=== PATIENT | male | born 2000 | race Caucasian/White ===

== ENCOUNTER 2022-04-24 02:21 | Inpatient (IN) | payer OTHER, SELFPAY ==
[2022-04-24] VITALS (24 sets, daily range): BP systolic 85–113; BP diastolic 35–69; PULSE 74–121; RESP 13–18; TEMP 36.7–36.8; O2SAT 95–100; BMI 25.4
--- NOTE | ~2022-04-24 | XR_ITS ---
EXAMINATION: XR chest 1V portable 04/24/2022 03:31 INDICATION: Diabetic ketoacidosis PROCEDURE: AP portable chest COMPARISON: No prior studies for comparison. FINDINGS: The lungs are clear. The cardiomediastinal silhouette is within normal limits. There are no pleural effusions. There is no pneumothorax suspected. IMPRESSION: 1: NO ACUTE CARDIOPULMONARY DISEASE. Reviewed, dictated and finalized at location A. TH INFORMATICS INSTRUCTOR
--- NOTE | ~2022-04-24 | XR_ITS ---
XR chest port-a-cath/central 04/24/2022 08:48 Indication: Central line placement Procedure: AP portable chest Comparison: 04/24/2022 Findings: Heart size upper normal. No focal air space disease, pulmonary edema, pleural effusion or s uspected pneumothorax. Central venous catheter tip in the right atrium. No acute osseous abnormality. Impression: 1: No acute cardiopulmonary disease. Reviewed, dictated and finalized at location A. DATION CONSULTANT Impression: 1: No acute cardiopulmonary disease.
--- NOTE | 2022-04-24 03:07 | ECG_ITS ---
Measurements Intervals [place] Rate: 119 P: 67 FL: 140 QRS: 260 QRSD: 97 T: 56 QT: 311 QTc: 439 Interpretive Statements SINUS TACHYCARDIA POSSIBLE LEFT ATRIAL ENLARGEMENT INCOMPLETE RIGHT BUNDLE BRANCH BLOCK CANNOT RULE OUT SEPTAL INFARCT, AGE INDETERMINATE ABNORMAL ECG COMPARED TO ECG 04/24/2022 03:08:06 NO SIGNIFICANT CHANGES Electronically Signed On 04-24-2022 7:49:46 GEOTHERMAL OPERATIONS MANAGER by Thong Holloway D.O.
[2022-04-24 03:37] LABS: Basophils Percent Auto 0.1 % (0.2-1.2); Hematocrit 40.2 % (42.0-52.0); Hemoglobin 13.8 g/dL (14.0-18.0); Immature Granulocyte Absolute 0.12 K/mm3 (0.00-0.031); Immature Granulocyte Percent A 0.6 % (0-0.5); Lymphocytes Absolute Auto 0.71 K/mm3 (0.9-3.2); Lymphocytes Percent Auto 3.8 % (18.3-44.2); Mean Corpuscular HGB Conc 34.3 g/dl (32-36); Mean Corpuscular Hemoglobin 29.5 pg (26-34); Mean Corpuscular Volume 85.9 fl (80-100); Mean Platelet Volume 12.4 fl (7.4-10.4); Monocytes Absolute Auto 1.3 K/mm3 (0.1-0.6); Neutrophils Absolute Auto 16.7 K/mm3 (1.3-6.7); Neutrophils Percent Auto 88.5 % (45.5-73.1); Platelet Count Result 235 k/mm3 (150-375); Red Blood Count 4.68 M/mm3 (4.6-6.20); Red Cell Distribution Width 11.9 % (11.5-14.5); White Blood Count 18.9 K/mm3 (4.5-10.0)
[2022-04-24] MEDS: ONDANSETRON INJ 4 MG/2 ML VIAL 8 MG IV PUSH (03:45)
[2022-04-24] MEDS: SODIUM CHLORIDE 0.9% IV 3,000 ML 999 ML IV CONT (03:46)
[2022-04-24 03:54] LABS: Alanine Aminotransferase 59 U/L (6-50); Albumin Level 4.1 g/dL (3.5-5.1); Alkaline Phosphatase 77 U/L (38-126); Anion Gap 25 mmol/L (8-16); Aspartate Amino Transferase 32 U/L (17-59); Bilirubin,Total 4.9 mg/dL (0.2-1.3); Blood Urea Nitrogen 24 mg/dL (9-20); Calcium 8.6 mg/dL (8.4-10.2); Carbon Dioxide 9 mmol/L (22-30); Chloride 96 mmol/L (98-107); Estimated CRCL calculation 73 ml/min; Estimated Glomerular Filt Rate > 60; Glucose 562 mg/dL (65-110); Lipase 34 U/L (23-300); Magnesium 1.6 mg/dL (1.6-2.3); Phosphorus 5.4 mg/dL (2.5-4.5); Sodium 130 mmol/L (137-145)
--- NOTE | 2022-04-24 04:10 | ECG_ITS ---
Measurements Intervals [place] Rate: 116 P: 73 [place]: 134 QRS: -36 QRSD: 101 T: 65 QT: 309 QTc: 430 Interpretive Statements SINUS TACHYCARDIA POSSIBLE LEFT ATRIAL ENLARGEMENT INCOMPLETE RIGHT BUNDLE BRANCH BLOCK CANNOT RULE OUT SEPTAL INFARCT, AGE INDETERMINATE ABNORMAL ECG NO PREVIOUS ECG AVAILABLE FOR COMPARISON Electronically Signed On 04-24-2022 7:45:28 ETCHED CIRCUIT PROCESSOR by Thong Holloway D.O.
[2022-04-24 04:39] LABS: Potassium 6.1 mmol/L (3.4-5.0)
[2022-04-24] MEDS: INSULIN HUMAN REGULAR (*BKC) 100 UNITS/ML 7 UNITS IV PUSH (04:48)
[2022-04-24] MEDS: INSULIN HUMAN REGULAR (*BKC) 100 UNITS in SODIUM CHLORIDE 0.9% IV 99 ML 8.4 UNITS IV CONT (04:51)
[2022-04-24 05:03] LABS: Influenza A QL RT-PCR Negative (Negative); Influenza B QL RT-PCR Negative (Negative); RSV RNA, RT-PCR Negative (Negative); SARS-CoV-2 RNA PCR Negative
[2022-04-24 05:16] LABS: Beta-Hydroxybutyrate/Acetoacetate 6.99 mmol/L (0.02-0.27)
[2022-04-24 05:36] LABS: Glucose Point of Care 482 mg/dl (65-105)
[2022-04-24 05:39] LABS: Anion Gap 21 mmol/L (8-16); Blood Urea Nitrogen 26 mg/dL (9-20); Calcium 7.1 mg/dL (8.4-10.2); Carbon Dioxide 8 mmol/L (22-30); Chloride 105 mmol/L (98-107); Estimated CRCL calculation 73 ml/min; Estimated Glomerular Filt Rate > 60; Glucose 474 mg/dL (65-110); Potassium 5.1 mmol/L (3.4-5.0); Sodium 134 mmol/L (137-145)
[2022-04-24 05:48] LABS: Appearance Urine Clear (Clear); Bilirubin Urine Negative (Negative); Blood Urine Negative (Negative); Color Urine Yellow (Yellow); Glucose Urine UA 3+ mg/dL (Negative); Ketones Urine 4+ mg/dL (Negative); Leukocyte Esterase Ur Negative LEU/UL (Negative); Nitrate Urine Negative (Negative); Protein Urine Negative (Negative); Specific Grav Ur 1.015 (1.001-1.035); Urobilinogen Urine 0.2 mg/dL (<2.0)
[2022-04-24 05:51] LABS: Hemoglobin A1C 7.7 % (<5.7)
[2022-04-24 05:52] LABS: Glucose Point of Care 442 mg/dl (65-105)
[2022-04-24 05:52] LABS: Bacteria Urine Trace /hpf; Mucus Urine Rare /lpf; RBC Urine 0-2 /hpf (0-2); Squamous Epithelial Cell Urine Rare /hpf (Few); WBC Urine 0-3 /hpf
[2022-04-24 06:00] LABS: Add Urine Microscopic? YES
[2022-04-24 06:32] LABS: Fractional Inspired Oxygen 21 %; PO2 VBG 73.6 mmHg (35.0-45.0)
[2022-04-24 06:37] LABS: pH VBG 7.228 (7.300-7.400)
[2022-04-24] MEDS: SODIUM CHLORIDE 0.9% IV 1,000 ML 999 ML IV CONT (06:38)
[2022-04-24] MEDS: CALCIUM GLUC 2,000 MG/NS 100ML 2,000 MG/100 ML BAG 100 MG IVPB (06:41)
[2022-04-24 06:44] LABS: Anion Gap 20 mmol/L (8-16); Blood Urea Nitrogen 27 mg/dL (9-20); Calcium 7.3 mg/dL (8.4-10.2); Carbon Dioxide 10 mmol/L (22-30); Chloride 105 mmol/L (98-107); Estimated CRCL calculation 73 ml/min; Estimated Glomerular Filt Rate > 60; Glucose 411 mg/dL (65-110); Potassium 4.2 mmol/L (3.4-5.0); Sodium 135 mmol/L (137-145)
[2022-04-24 06:45] LABS: Lactic Acid Reflex 3.6 mmol/L (0.7-2.0)
[2022-04-24 06:50] LABS: Glucose Point of Care 361 mg/dl (65-105)
[2022-04-24 07:14] LABS: Glucose Point of Care 337 mg/dl (65-105)
--- NOTE | 2022-04-24 07:26 | ED.GENADULT ---
HPI - General Adult General Chief complaint: Recheck/Abnormal Lab/Rx Stated complaint: high blood sugar Time Seen by Provider: 04/24/22 03:07 History of Present Illness HPI narrative: This is a 21-year-old male history of type 1 diabetes presenting to ED with nausea/vomiting and abdominal pain. The patient states he was house-sitting did not have his diabetes kit with him. He is not sure of his pump is actually working. He was not able to check his blood sugar. At 2:00 p.m. on 04/23 patient started experiencing nausea vomiting and total body pain. He checked his blood sugar at time is over 400. He then came to the hospital for evaluation. Patient denies fever, chills, chest pain difficulty breathing, urinary symptoms or diarrhea. Related Data Allergies Allergy/AdvReac Type Severity Reaction Status Date / Time No Known Allergies Allergy Verified 04/24/22 04:26 [facility] Past Medical History Medical History Gilbert syndrome Type I diabetes mellitus Social History Social History Social History: Denies use of alcohol tobacco. Admits marijuana use. Denies illicit drug use. Exam Narrative: APPEARANCE: No apparent distress. patient is lying supine in bed Head: atraumatic. EYES: EOMI, NOSE: Atraumatic NECK: Trachea midline RESPIRATORY: No increased rate of breathing clear to auscultation CARDIOVASCULAR: tachycardic, no peripheral edema ABDOMINAL: Non-distended, nontender no guarding or rebound, glucose detector in place MUSCULOSKELETAl: No obvious deformities NEURO: Alert. Moving 4/4 extremities SKIN:: jaundice PSYCHIATRIC: Normal affect Course Vital Signs Vital signs: Vital Signs Pulse Rate 121 H 04/24/22 02:24 Respiratory Rate 16 04/24/22 02:24 Blood Pressure 105/35 L 04/24/22 02:24 Pulse Oximetry 100 04/24/22 02:24 Oxygen Delivery Room Air 04/24/22 02:24 Pulse Rate 114 H 04/24/22 07:00 Respiratory Rate 16 04/24/22 07:00 Blood Pressure 93/46 L 04/24/22 07:00 Pulse Oximetry 100 04/24/22 07:00 Oxygen Delivery Room Air 04/24/22 02:24 Medical Decision Making MDM Narrative Medical decision making narrative: -Presentation:Is a 21-year-old male presenting ED with chief complaint of nausea vomiting total body pain with elevated blood sugars. -DDX includes but is not limited to: DKA, gastroenteritis, viral syndrome -Co-morbidities complicating care: 1 diabetes, Gilbert syndrome -External Chart Review: none -Hx from independent Sources: father -Discussion of Management/Consultants: - Sweta- Medicine -Independent interpretation of studies: White blood cell count was 18.9. Chest x-ray, urinalysis and skin exam did not reveal any infections. Blood cultures were ordered. Venous blood gas showed a pH is 7.2, CO2 of 22, O2 of 73.6 and a bicarb of 9, this represents a metabolic acidosis with respiratory compensation metabolic panel showed a metabolic acidosis with anion gap of 20. BUN and creatinine are elevated 27 and 1.4. Initial lactic was 3.6, initial hydroxybutyrate 6.99. Patient's bilirubin is elevated 4.9, likely from his Gilbert's syndrome urinalysis was positive for ketones but no evidence of infection. Viral swabs were negative. At this time the patient is in diabetic ketoacidosis. He will be started on a 7.4 units/hour insulin drip, 250 cc/hour normal saline. Patient's was given calcium gluconate for his elevated potassium. His potassium should continue to drop as we correct his acidosis. patient does receive of 4.5 L bolus, and is continued to receive maintenance fluid. His blood pressure has slowly been responding to fluids. Given the patient's elevated white blood cell count tachycardia and soft blood pressures I am going to start him on broad-spectrum antibiotics. -Procedures: None -Interventions: 4.5 L of fluid bolus, 10
[2022-04-24] MEDS: SODIUM CHLORIDE 0.9% IV 1,000 ML 250 ML IV CONT (07:30)
--- NOTE | 2022-04-24 07:37 | ECG_ITS ---
Measurements Intervals [place] Rate: 110 P: 61 [place]: 131 QRS: 9 QRSD: 90 T: 62 QT: 334 QTc: 454 Interpretive Statements SINUS TACHYCARDIA BASELINE ARTIFACT- III ABNORMAL ECG COMPARED TO ECG 04/24/2022 04:10:57 NO SIGNIFICANT CHANGES Electronically Signed On 04-24-2022 15:18:36 TRACER POWDER BLENDER by Thong Holloway D.O.
--- NOTE | 2022-04-24 07:56 | PC.NURSE ---
Per Dr. Leija insulin drip to stay at 7.2 units/hr. VORB.
[2022-04-24 08:22] LABS: Glucose Point of Care 307 mg/dl (65-105)
--- NOTE | 2022-04-24 08:24 | PC.NURSE ---
EDP Zych at bedside for central line insertion.
[2022-04-24] MEDS: NOREPINEPHRINE 8 MG/D5W 250 ML 8 MG/250 ML BAG 9.38 MG IV CONT (08:56)
[2022-04-24 09:18] LABS: Glucose Point of Care 284 mg/dl (65-105)
[2022-04-24] MEDS: HYDROcodone/acetaminophen (*CRX) 5-325 MG TABLET 1 TAB PO (09:20)
[2022-04-24 09:27] LABS: Anion Gap 7 mmol/L (8-16); Blood Urea Nitrogen 26 mg/dL (9-20); Carbon Dioxide 18 mmol/L (22-30); Chloride 107 mmol/L (98-107); Estimated CRCL calculation 78 ml/min; Estimated Glomerular Filt Rate > 60; Glucose 295 mg/dL (65-110); Potassium 3.9 mmol/L (3.4-5.0); Sodium 132 mmol/L (137-145)
[2022-04-24 09:28] LABS: Reflex Lactic Acid Yes or No Add Lactic
[2022-04-24 10:09] LABS: Glucose Point of Care 230 mg/dl (65-105)
[2022-04-24 10:16] LABS: Procalcitonin 33.2 ng/mL
--- NOTE | 2022-04-24 10:16 | WPDCNINT ---
Assessment and Plan Assessment and plan (1) DKA (diabetic ketoacidosis): Code(s): E11.10 - Type 2 diabetes mellitus with ketoacidosis without coma Status: Acute Assessment and Plan: Patient was given IVF bolus and and started infusion Patient has been started Insulin infusion and Q1H glucose monitoring Serial labs are being done Replace electrolytes as needed His anion gap has closed. He states he would like to eat food and denies any symptoms at this time but he still on 5 units of insulin I will start clear liquid diet and advance as tolerated. I will give him Lantus per continue insulin infusion at this time. Once insulin requirement is improved will switch him to with meal and sliding scale insulin (2) Sepsis: Code(s): A41.9 - Sepsis, unspecified organism Status: Acute Assessment and Plan: Patient presented with elevated WBC count and hypotension This could be secondary to DKA, stress, hypovolemia His chest x-ray and UA are unremarkable Patient was started on empiric antibiotics in the ER-continue vanc and cefepime Check procalcitonin level Blood culture have been sent and pending COVID and flu were negative (3) KHAI (acute kidney injury): Code(s): N17.9 - Acute kidney failure, unspecified Status: Acute Assessment and Plan: Likely secondary to hypovolemia and dehydration Creatinine is improving with IV fluids Check CK level Check urine electrolytes (4) Shock: Code(s): R57.9 - Shock, unspecified Status: Acute Assessment and Plan: Patient was hypotensive the ED. he received significant more than 4 L of IV fluid bolus but his blood pressure remained low Central venous catheter was placed and patient has been started on Levophed Hypotension could be hypovolemia dehydration and metabolic derangements Sepsis another possibility and patient is being treated empirically with antibiotics Check procalcitonin level Repeat lactic acid level Continue Levophed titration Continue IV fluid Plan DVT prophylaxis -SCDs Nutrition -NPO. Advance diet as tolerated Code Status - Full Code Total Critical Care Time - 30 minutes Due to a high probability of clinically significant, life threatening deterioration, the patient required my highest level of preparedness to intervene emergently and I personally spent this critical care time directly and personally managing the patient. This critical care time included obtaining a history; examining the patient; pulse oximetry; ordering and review of studies; arranging urgent treatment with development of a management plan; evaluation of patient's response to treatment; frequent reassessment; and discussions with other providers. It was exclusive of separately billable procedures and treating other patients and teaching time. Please see Assessment and Plan section and the rest of the note for further information on patient assessment and treatment Quarter Section Ironer Consult Note Consult date: 04/24/22 Reason for consult: DKA, Hypotension HPI: Dimas Last is a 21 year old male with past medical history of type 1 diabetes presenting to ED last night with nausea/vomiting and abdominal pain.? The patient states he is on insulin pump and is not sure of his pump is actually working.? He did not had his echo check machine with him hence was not able to check his blood sugar.? At 2:00 p.m. on 04/23? patient he started experiencing nausea vomiting and total body pain.? He checked his blood sugar at time is over 400.? He then came to the hospital for evaluation.? In ED patient was found to be in DKA, KHAI and hyperkalemia. He was given IV fluid bolus and started on IV fluid infusion. He was also started on IV insulin. His blood pressure was low despite IV fluid boluses blood pressure remained low. Central venous catheter was placed and patient was started on Levophed infusion. Patient now admitted to ICU for further evaluation management. He is on 5 uni
--- NOTE | 2022-04-24 10:21 | ADMGEN ---
This patient, Dimas Last, was admitted to Intensive Care Unit-2. Patient/family oriented to hospital policies and general routines including ID bracelet, bed and alarms, visiting hours, pain management, procedures, bathroom and other care routines, personal items, smoking policy, room service/diet, and visiting hours. Information on how to activate the Rapid Response Team has been discussed. Patient/Family are encouraged to report perceived risks to care and to ask questions if they do not understand what they are told or what they should do.
--- NOTE | 2022-04-24 11:06 | PM.IMHP ---
H&P: HPI History of Present Illness Date/Time: 04/24/22 11:06 Chief Complaint: Elevated blood sugar Narrative: This is a 21-year-old male history of type 1 diabetes presenting to ED with nausea/vomiting and abdominal pain.? The patient states he was house-sitting did not have his diabetes kit with him.? He is not sure of his pump is actually working.? He was not able to check his blood sugar.? At 2:00 p.m. on 04/23? patient started experiencing nausea vomiting and total body pain.? He checked his blood sugar at time is over 400.? He then came to the hospital for evaluation.? Patient denies fever, chills, chest pain difficulty breathing, urinary symptoms or diarrhea. [facility] Past Medical History Medical History Gilbert syndrome Type I diabetes mellitus Social History Social History Social History: Denies use of alcohol tobacco. Admits marijuana use. Denies illicit drug use. Smoking status: Never smoker Lack of Transportation: No Lack of Food: Never True Current Housing: I Have Housing Concerned About Future Housing: No Difficulty Paying Gas/Electric Bills: No Difficulty Paying for Meds: No Currently Unemployed: No Education: High School Diploma/GED Difficulty w/ Childcare or Family Care: No Spiritual care concerns: No Meds Home Medications and Allergies Home Medications Medication Instructions Recorded Confirmed Type blood sugar diagnostic (Accu-Chek 04/24/22 04/24/22 History Guide test strips) insulin lispro 100 unit/mL See Rx Instructions .Route .COMPLEX 04/24/22 04/24/22 History subcutaneous solution (Humalog U-100 Insulin) Allergies Allergy/AdvReac Type Severity Reaction Status Date / Time No Known Allergies Allergy Verified 04/24/22 04:26 Vital Signs Vital Signs - 24 hr 04/24/22 02:24 04/24/22 06:46 04/24/22 07:00 Pulse Rate 121 H 112 H 114 H Respiratory Rate 16 16 Blood Pressure 105/35 L 85/43 L 93/46 L Pulse Oximetry 100 99 100 Oxygen Delivery Room Air 04/24/22 07:31 04/24/22 07:49 04/24/22 07:57 Pulse Rate 112 H 114 H Respiratory Rate 16 16 18 Blood Pressure 90/48 L 92/46 L Pulse Oximetry 100 100 100 Oxygen Delivery 04/24/22 08:16 04/24/22 08:56 04/24/22 09:16 Pulse Rate 110 H 104 H 102 H Respiratory Rate 18 17 Blood Pressure 88/49 L 102/54 L 108/59 L Pulse Oximetry 98 99 Oxygen Delivery 04/24/22 09:41 04/24/22 10:11 Pulse Rate 102 H Respiratory Rate 18 Blood Pressure 106/61 105/60 Pulse Oximetry 99 Oxygen Delivery Exam Narrative: General: alert and oriented Psych: appropriate mood nad affect Eyes: PERRLA Neck: Trachea midline, no new lesions Skin: no changes Lungs: CTA Cardiac: Normal S1,S2, no MGR ABD: soft, nd, nt, nbs Ext: no new lesions, no cce Vasc: Pulses intact H&P: Results Labs Labs: Short CBC 04/24/22 Range/Units 03:10 WBC 18.9 H (4.5-10.0) K/mm3 Hgb 13.8 L (14.0-18.0) g/dL Hct 40.2 L (42.0-52.0) % Plt Count 235 (150-375) k/mm3 BMP 04/24/22 04/24/22 04/24/22 03:10 04:23 05:21 Sodium 130 L 134 L Potassium 6.0 H* 6.1 H* 5.1 H Chloride 96 L 105 Carbon Dioxide 9 L 8 L BUN 24 H 26 H Creatinine 1.40 H 1.40 H Glucose 562 H* 474 H Calcium 8.6 7.1 L 04/24/22 04/24/22 06:23 09:10 Sodium 135 L 132 L Potassium 4.2 3.9 Chloride 105 107 Carbon Dioxide 10 L 18 L BUN 27 H 26 H Creatinine 1.40 H 1.30 Glucose 411 H 295 H Calcium 7.3 L 8.0 L Liver Function 04/24/22 Range/Units 03:10 Total Bilirubin 4.9 H (0.2-1.3) mg/dL AST 32 (17-59) U/L ALT 59 H (6-50) U/L Alkaline Phosphatase 77 (38-126) U/L Albumin 4.1 (3.5-5.1) g/dL Urine 04/24/22 Range/Units 05:34 Urine Color Yellow (Yellow) Urine Appearance Clear (Clear) Urine pH 5.0 (5.0-9.0) Ur Specific [place]
[2022-04-24 11:08] LABS: Creatine Kinase 238 U/L (55-170)
[2022-04-24 11:09] LABS: Lactic Acid 1.4 mmol/L (0.7-2.0)
[2022-04-24] MEDS: LACTATED RINGERS 1,000 ML 150 ML IV CONT ×2 (11:09→18:37)
[2022-04-24] MEDS: INSULIN GLARGINE (*BKC) 100 UNITS/ML 30 UNITS SUB-Q (11:09)
[2022-04-24 11:37] LABS: Glucose Point of Care 207 mg/dl (65-105)
[2022-04-24 11:43] LABS: Procalcitonin 30.5 ng/mL
[2022-04-24 12:07] LABS: Glucose Point of Care 180 mg/dl (65-105)
[2022-04-24 13:02] LABS: Glucose Point of Care 223 mg/dl (65-105)
[2022-04-24 14:12] LABS: Glucose Point of Care 214 mg/dl (65-105)
[2022-04-24 14:21] LABS: Creatinine Urine 40.9 mg/dL
[2022-04-24 14:27] LABS: Sodium Urine Random 34 meq/L
[2022-04-24 15:10] LABS: Glucose Point of Care 163 mg/dl (65-105)
[2022-04-24 16:19] LABS: Glucose Point of Care 131 mg/dl (65-105)
[2022-04-24 17:11] LABS: Glucose Point of Care 98 mg/dl (65-105)
[2022-04-24 17:22] LABS: Anion Gap 3 mmol/L (8-16); Blood Urea Nitrogen 20 mg/dL (9-20); Calcium 8.1 mg/dL (8.4-10.2); Carbon Dioxide 23 mmol/L (22-30); Chloride 112 mmol/L (98-107); Estimated CRCL calculation 97 ml/min; Estimated Glomerular Filt Rate > 60; Glucose 106 mg/dL (65-110); Sodium 138 mmol/L (137-145)
[2022-04-24 18:11] LABS: Glucose Point of Care 77 mg/dl (65-105)
[2022-04-24] MEDS: ACETAMINOPHEN 500 MG TABLET 1000 MG PO (18:46)
[2022-04-24 20:15] LABS: Glucose Point of Care 139 mg/dl (65-105)
[2022-04-25] VITALS (10 sets, daily range): BP systolic 93–108; BP diastolic 61–72; PULSE 68–91; RESP 14–18; TEMP 36.9–37.2; O2SAT 97–100; BMI 25.4
[2022-04-25] MEDS: LACTATED RINGERS 1,000 ML 150 ML IV CONT (00:49)
[2022-04-25 05:22] LABS: Hematocrit 36.1 % (42.0-52.0); Mean Corpuscular HGB Conc 33.2 g/dl (32-36); Mean Corpuscular Hemoglobin 29.3 pg (26-34); Mean Corpuscular Volume 88.3 fl (80-100); Mean Platelet Volume 11.2 fl (7.4-10.4); Platelet Count Result 157 k/mm3 (150-375); Red Blood Count 4.09 M/mm3 (4.6-6.20); Red Cell Distribution Width 12.3 % (11.5-14.5); White Blood Count 10.4 K/mm3 (4.5-10.0)
[2022-04-25 05:32] LABS: Alanine Aminotransferase 43 U/L (6-50); Albumin Level 2.8 g/dL (3.5-5.1); Alkaline Phosphatase 43 U/L (38-126); Anion Gap 2 mmol/L (8-16); Aspartate Amino Transferase 42 U/L (17-59); Bilirubin,Total 3.2 mg/dL (0.2-1.3); Blood Urea Nitrogen 17 mg/dL (9-20); Calcium 7.8 mg/dL (8.4-10.2); Carbon Dioxide 23 mmol/L (22-30); Chloride 106 mmol/L (98-107); Estimated CRCL calculation 97 ml/min; Estimated Glomerular Filt Rate > 60; Glucose 235 mg/dL (65-110); Magnesium 1.6 mg/dL (1.6-2.3); Phosphorus 2.3 mg/dL (2.5-4.5); Potassium 4.2 mmol/L (3.4-5.0); Sodium 131 mmol/L (137-145)
[2022-04-25] MEDS: ACETAMINOPHEN 500 MG TABLET 1000 MG PO ×2 (05:54→11:57)
[2022-04-25 07:42] LABS: Glucose Point of Care 264 mg/dl (65-105)
[2022-04-25] MEDS: INSULIN ASPART (*BKC) 100 UNITS/ML SUB-Q ×2 (08:16→11:43)
[2022-04-25] MEDS: INSULIN GLARGINE (*BKC) 100 UNITS/ML 30 UNITS SUB-Q (08:17)
--- NOTE | 2022-04-25 11:04 | WPDINTPN ---
Progress Note: A&P Assessment and Plan (1) DKA (diabetic ketoacidosis): Code(s): E11.10 - Type 2 diabetes mellitus with ketoacidosis without coma Status: Acute Assessment and Plan: Pt admitted with DKA. status post insulin infusion -received adequate IV fluids. Patient was given IVF bolus and and started infusion - tolerating PO diet - transitioned to long acting insulin, lantus and SSI with Accuchecks .- health promotion educator and planner/scheduler evaluating the patient -hemoglobin A1c level 7.7 this admission (2) Sepsis: Code(s): A41.9 - Sepsis, unspecified organism Status: Acute Assessment and Plan: Patient presented with elevated WBC count and hypotension This could be secondary to DKA, stress, hypovolemia His chest x-ray and UA are unremarkable Patient was started on empiric antibiotics in the ER-continue vanc and cefepime Procalcitonin levels were elevated, -patient also dropped his blood pressures on started on Levophed briefly which is currently off -04/24/2022: Blood cultures : Preliminary report is negative x2 -COVID RSV and flu were negative -UA was negative -hypotension could be related to hypovolemia secondary to DKA -elevated bilirubin: Will obtain RUQ ultrasound and hepatitis panel (3) KHAI (acute kidney injury): Code(s): N17.9 - Acute kidney failure, unspecified Status: Acute Assessment and Plan: Likely secondary to hypovolemia and dehydration -creatinine is back to normal -Creatinine kinase was minimally elevated -continue to monitor urine output, electrolytes and renal function (4) Shock: Code(s): R57.9 - Shock, unspecified Status: Acute Assessment and Plan: Patient was hypotensive the ED. he received significant more than 4 L of IV fluid bolus but his blood pressure remained low -Central venous catheter was placed and patient has been started on Levophed -now off Levophed Hypotension could be hypovolemia dehydration and metabolic derangements Sepsis another possibility and patient is being treated empirically with antibiotics -prolactin levels were elevated -initial lactic acid was 3.6, repeat lactic acid was 1.4 Continue IV fluids Plan DVT prophylaxis -SCDs Nutrition -NPO. Advance diet as tolerated Code Status - Full Code Total Critical Care Time - 31 minutes -discussed with patient and family at bedside updated with patient's condition and plan of care. -patient will be able to transfer out of the ICU today Due to a high probability of clinically significant, life threatening deterioration, the patient required my highest level of preparedness to intervene emergently and I personally spent this critical care time directly and personally managing the patient. This critical care time included obtaining a history; examining the patient; pulse oximetry; ordering and review of studies; arranging urgent treatment with development of a management plan; evaluation of patient's response to treatment; frequent reassessment; and discussions with other providers. It was exclusive of separately billable procedures and treating other patients and teaching time. Please see Assessment and Plan section and the rest of the note for further information on patient assessment and treatment Subjective Date/time seen: 04/25/22 11:04 Interval history: Reason for consult: DKA, sepsis with shock requiring Levophed, acute kidney injury 04/25/2022: Patient seen and examined the ICU, is awake, alert, in no distress. On room air with good O2 sats, blood pressures have been stable. Patient has been off Levophed since yesterday. Received adequate amount of IV fluids. Good UO, tolerating PO diet. Denies chest pain, SOB, N/V, Abdominal pain Review of Systems Review of Systems: All systems reviewed & are unremarkable except as noted in HPI and below Exam Narrative: General: Pt is alert awake and in NAD Lungs/Chest: Trachea central Clear BS B/L, No crackles or wheezin
[2022-04-25 11:35] LABS: Glucose Point of Care 332 mg/dl (65-105)
--- NOTE | 2022-04-25 12:00 | PM.DS ---
DS: Admitting Diagnosis Discharge Date April 25, 2022 Admitting Diagnosis DKA DS: Discharge Diagnosis Discharge Diagnosis (1) DKA (diabetic ketoacidosis): Code(s): E11.10 - Type 2 diabetes mellitus with ketoacidosis without coma Status: Acute Assessment and Plan: Pt admitted with DKA. status post insulin infusion -now resolved (2) Sepsis: Code(s): A41.9 - Sepsis, unspecified organism Status: Acute Assessment and Plan: No sepsis likely, likely related to volume depletion (3) KHAI (acute kidney injury): Code(s): N17.9 - Acute kidney failure, unspecified Status: Acute Assessment and Plan: Resolved (4) Shock: Code(s): R57.9 - Shock, unspecified Status: Acute DS: Summary Hospital Course Hospital Course: Patient is 21-year-old was admitted for DKA and hypovolemia. Also found to have low blood pressure. He is now tolerating a diet and on insulin. Initially there was thought to be some sort of infection but imaging has been negative. Antibiotics have been stopped. Feeling much better overall. Patient can discharged Time Spent with Patient Time attestation: Total time spent providing and/or coordinating discharge services: Exam Narrative: General: Pt is alert awake and in NAD Lungs/Chest: Trachea central Clear BS B/L, No crackles or wheezing. Subclavian central venous catheter on the right side Cardiac: RRR. Normal S1 S2. No murmurs Circulation: Pedal pulses are intact and symmetrical. Abdomen: Normal bowel sounds. Soft. NT. ND. Extremities: No clubbing, cyanosis or edema. Warm : Hunter in place Neurologic: Follows commands. Moves all 4 extremities PERRL AO x3 Skin: No Rash, flushed face, DS: Data Data Completed and Pending Labs on day of discharge: Labs from last 24 hours 04/25/22 04/25/22 04/25/22 11:30 07:18 05:14 WBC RBC Hgb Hct MCV MCH MCHC RDW Plt Count MPV O2 Delivery Device O2 Liters/Min Sodium 131 L Potassium 4.2 Chloride 106 Carbon Dioxide 23 Anion Gap 2 L BUN 17 Creatinine 1.00 Estim Creat Clear Calc 97 Estimated GFR > 60 Glucose 235 H POC Capillary Glucose 332 H 264 H Calcium 7.8 L Phosphorus 2.3 L Magnesium 1.6 Total Bilirubin 3.2 H Direct Bilirubin AST 42 ALT 43 Alkaline Phosphatase 43 Total Protein 5.0 L Albumin 2.8 L Ur Random Sodium Urine Creatinine Hepatitis A IgM Ab Hep Bs Antigen Hep B Core IgM Ab Hepatitis C Ab Screen 04/25/22 04/25/22 04/24/22 05:14 05:13 20:12 WBC 10.4 H RBC 4.09 L Hgb 12.0 L Hct 36.1 L MCV 88.3 MCH 29.3 MCHC 33.2 RDW 12.3 Plt Count 157 MPV 11.2 H O2 Delivery Device O2 Liters/Min Sodium Potassium Chloride Carbon Dioxide Anion Gap BUN Creatinine Estim Creat Clear Calc Estimated GFR Glucose POC Capillary Glucose 139 H Calcium Phosphorus Magnesium Total Bilirubin Direct Bilirubin 0.0 AST ALT Alkaline Phosphatase Total Protein Albumin Ur Random Sodium Urine Creatinine Hepatitis A IgM Ab Hep Bs Antigen Hep B Core IgM Ab Hepatitis C Ab Screen 04/24/22 04/24/22 04/24/22 18:06 17:07 17:04 WBC RBC Hgb Hct MCV MCH MCHC RDW Plt Count MPV O2 Delivery Device O2 Liters/Min Sodium 138 Potassium 4.0 Chloride 112 H Carbon Dioxide 23 Anion Gap 3 L BUN 20 Creatinine 1.00 Estim Creat Clear Calc 97 Estimated GFR > 60 Glucose 106 POC Capillary Glucose 77 98 Calcium 8.1 L Phosphorus Magnesium Total Bilirubin Direct Bilirubin AST ALT Alkaline Phosphatase Total Protein Albumin Ur Random Sodium Urine Creatinine Hepatitis A IgM Ab Hep Bs Antigen Hep B Core IgM Ab Hepatitis C Ab Screen
[2022-04-25 12:23] LABS: Hepatitis B Surface Antigen Negative (Negative)
[2022-04-25 12:29] LABS: HAV RESULT Negative (Negative); Hepatitis B Core IgM Result Negative (Negative)
[2022-04-25 12:41] LABS: Hepatitis C Virus Antibody Negative (Negative)
== END 2022-04-25 13:20 | disposition home or self-care (01) | DRG 637 ==
LOC: ANHED 07:47 → ANHICU 08:21
PROVIDERS: Internal Medicine; Physician Assistant; Admitting Provider Internal Medicine; Emergency Provider Emergency Medicine; Visit Provider Chiropractor
DX: E10.10 Type 1 diabetes mellitus with ketoacidosis without coma (principal); R57.1 Hypovolemic shock; N17.9 Acute kidney failure, unspecified; I95.89 Other hypotension; E86.0 Dehydration; Z20.822 Contact with and (suspected) exposure to COVID-19; E80.4 Gilbert syndrome; D72.829 Elevated white blood cell count, unspecified; E87.5 Hyperkalemia
CPT/HCPCS: 36415; 71045; 80048; 80053; 80074; 81001; 82010; 82248; 82550; 82570; 82803; 82948; 83036; 83605; 83690; 83735; 84100; 84132; 84145; 84300; 85025; 85027; 87040; 87637; 93005; 96365; 96367; 96375; 99291; A9270; C1751; J0612; J0692; J1815; J2405; J3370; J7030; J7120